=== PATIENT | female | born 1965 | race Caucasian/White ===

== ENCOUNTER 2019-08-03 11:13 | Emergency (ER) | payer BC ==
--- NOTE | 2019-08-03 12:17 | UC ---
Complaint Female HPI - HPI Summary HPI Summary: 1 WEEK OF WORSENING RIGHT FLANK PAIN. DENIES ANY INJURY OR TRAUMA. DENIES ANY URINARY SYMPTOMS. HAD SOME CHILLS. NO FEVER. NO NAUSEA. REPORTS A POSITIVE PERSONAL HISTORY OF KIDNEY STONES IN THE PAST. TYLENOL NOT HELPING. - History Of Current Complaint Chief Complaint: UCBackPain Stated Complaint: LOWER BACK PAIN Time Seen by Provider: 08/03/19 12:08 Hx Obtained From: Patient Onset/Duration: Gradual Onset, Lasting Days, Still Present Timing: Constant Severity Initially: Moderate Severity Currently: Moderate Pain Intensity: 2 Pain Scale Used: 0-10 Numeric Character: Sharp Aggravating Factor(s): Movement Alleviating Factor(s): Nothing Associated Signs And Symptoms: Positive: Back Pain. Negative: Vaginal Bleeding/ Discharge, Nausea - Allergies/Home Medications Allergies/Adverse Reactions: Allergies Allergy/AdvReac Type Severity Reaction Status Date / Time Penicillins Allergy Intermediate Unknown Verified 08/03/19 11:29 Reaction Details PMH/Surg Hx/FS Hx/Imm Hx GI/ History: Kidney Stones - Surgical History Surgical History: None - Family History Known Family History: Positive: Cardiac Disease, Other - [place] - Social History Alcohol Use: Occasionally Substance Use Type: None Smoking Status (MU): Current Every Day Smoker Review of Systems All Other Systems Reviewed And Are Negative: Yes Constitutional: Positive: Chills Skin: Positive: Negative Respiratory: Positive: Negative Cardiovascular: Positive: Negative Gastrointestinal: Positive: Negative Genitourinary: Negative: Dysuria, Frequency, Urgency Musculoskeletal: Positive: Other: - RIGHT FLANK PAIN Physical Exam Triage Information Reviewed: Yes Appearance: Well-Appearing, Well-Nourished, Pain Distress - MILD/MOD Vital Signs: Initial Vital Signs Temp 99.1 F 08/03/19 11:24 Pulse 91 08/03/19 11:24 Resp 18 08/03/19 11:24 BP 118/77 08/03/19 11:24 Pulse Ox 99 08/03/19 11:24 Laboratory Tests 08/03/19 12:23 POC Urine Color Yellow POC Urine Clarity Clear POC Urine pH 6.0 POC Ur Specif [place] 1.015 POC Urine Protein Negative POC Ur Glucose (UA) Negative POC Urine Ketones Trace A POC Urine Blood Negative POC Urine Nitrite Negative POC Urine Bilirubin Negative POC Urine Urobilinogen 0.2 POC U Leukocyte Esteras Negative Vital Signs Reviewed: Yes Eyes: Positive: Conjunctiva Clear ENT: Positive: Hearing grossly normal Neck: Positive: Supple Respiratory: Positive: No respiratory distress, No accessory muscle use Cardiovascular: Positive: Pulses Normal Abdomen Description: Positive: Soft, CVA Tenderness (R). Negative: CVA Tenderness (L) Musculoskeletal: Positive: No Edema Neurological: Positive: Alert Psychological: Positive: Age Appropriate Behavior Skin: Negative: Rashes Diagnostics - Radiology CT ABD/PELVIS W/O CONTRAST Radiology Interpretation Completed By: Radiologist Summary of Radiographic Findings: No obstructive uropathy is noted. No abnormal masses or fluid collections are identified. Normal appendix. Complaint Female Dx - Course Course Of Treatment: URINE UNREMARKABLE. CT SCAN UNREMARKABLE. NO SIGN OF STONE. WILL TREAT FOR MUSCLE STRAIN WITH FLEXERIL AND NAPROXEN. ADVISED HEAT AND SLOW RANGE OF MOTION EXERCISES. FOLLOW-UP IF NOT IMPROVING EXPECTED. - Differential Dx/Diagnosis Provider Diagnosis: Thoracic back pain Discharge ED - Sign-Out/Discharge Documenting (check all that apply): Patient Departure All imaging exams completed and their final reports reviewed: Yes - Discharge Plan Condition: Stable Disposition: HOME Prescriptions: Cyclobenzaprine TAB* [Flexeril TAB*] 10 mg PO BID PRN #30 tab PRN Reason: Pain Naproxen [Naproxen 500 mg tab] 500 mg PO BID PRN #30 tablet PRN Reason: Pain Patient Education Materials: Muscle Strain (ED), Flank Pain (ED) Referrals: [facility] [Outside] - If Needed Additional Instructions: UNCLEAR ETIOLOGY OF YOUR RIGHT FLANK PAIN. CT SCAN TODAY UNREMARKABLE. URINE TEST GROSSLY UNREMARKABLE. WILL TREAT TODAY FOR POSSIBLE MUSCLE STRAIN. TAKE MUSCLE RELAXER BEFORE BED. NAPROXEN TWICE DAILY NEEDED FOR DISCOMFORT. BE SURE TO GO THROUGH SLOW STRETCHING AND RANGE OF MOTION EXERCISES DAILY TO HELP PREVENT STIFFENING UP AND MAKING THE DISCOMFORT WORSE. GO TO THE ER WITHOUT FAIL IF YOU DEVELOP WORSENING PAIN, NAUSEA, FEVER, BRIGHT RED BLOOD IN THE URINE OR ANY OTHER CONCERNING SYMPTOMS. CALL THE NUMBER BELOW FOR ASSISTANCE IN ESTABLISHING WITH A PCP An additional resource available to assist in finding the appropriate physician for your health care needs is [facility] ([facility]). You may contact them by calling [phone]. - Billing Disposition and Condition Condition: STABLE Disposition: Home
[2019-08-03 13:45] VITALS: BP 118/71
== END 2019-08-03 13:50 | disposition home or self-care (01) ==
LOC: UCEAST 11:13
DX: M54.6 Pain in thoracic spine (principal); S29.012A Strain of muscle and tendon of back wall of thorax, initial encounter; F17.200 Nicotine dependence, unspecified, uncomplicated; Z88.0 Allergy status to penicillin; Z87.442 Personal history of urinary calculi; X58.XXXA Exposure to other specified factors, initial encounter; Y92.9 Unspecified place or not applicable
CPT/HCPCS: 74176; 81003; 99202; G0463